=== PATIENT | female | born 1975 | race American Indian/Alaskan Native ===

== ENCOUNTER 2018-02-10 17:21 | Inpatient (IN) | payer MEDICAID ==
--- NOTE | 2018-02-10 18:41 | C.PDOC ---
History Of Present Illness 42 year old female presents to the ED for ETOH detox. Patient reports she drinks every day. Admits she is sad. No other medical complaints at this time. Denies suicidal ideations and homicidal ideations. pt reports recent dx of hype rthyroidism and htn, started on medications in early jan, reports compliance. Time Seen by Provider: 02/10/18 18:36 Chief Complaint (Nursing): Medical Clearance History Per: Patient History/Exam Limitations: no limitations Past Medical History Reviewed: Historical Data, Nursing Documentation, Vital Signs Vital Signs: Last Vital Signs Temp 98.9 F 02/10/18 17:43 Pulse 98 H 02/10/18 17:43 Resp 18 02/10/18 17:43 BP 138/90 02/10/18 17:43 Pulse Ox 96 02/10/18 17:43 - Medical History PMH: Hypothyroidism Surgical History: Appendectomy, Cholecystectomy Family History: States: Unknown Family Hx - Social History Hx Alcohol Use: Yes Hx Substance Use: No - Immunization History Hx Tetanus Toxoid Vaccination: No Hx Influenza Vaccination: No Hx Pneumococcal Vaccination: No Review Of Systems Constitutional: Negative for: Fever, Chills Cardiovascular: Positive for: Palpitations. Negative for: Chest Pain Respiratory: Negative for: Cough, Shortness of Breath Gastrointestinal: Negative for: Vomiting, Abdominal Pain Skin: Negative for: Rash Neurological: Negative for: Weakness, Numbness Psych: Positive for: Other (sad. ). Negative for: Suicidal ideation ((-) homicidal ideations. ) Physical Exam - Physical Exam Appears: Non-toxic, No Acute Distress Skin: Warm, Dry Head: Atraumatic, Normacephalic Eye(s): bilateral: Normal Inspection Oral Mucosa: Moist Lips: Other (chapped lips.) Neck: Normal ROM, Supple Chest: Symmetrical, No Deformity Cardiovascular: No Murmur, Other (tachycardia. ) Respiratory: Normal Breath Sounds, No Rales, No Rhonchi, No Wheezing Gastrointestinal/Abdominal: Normal Exam, Bowel Sounds, Soft, No Tenderness, No Guarding, No Rebound Extremity: Normal ROM (x4) Neurological/Psych: Oriented x3, Normal Speech, Normal Cognition ED Course And Treatment - Laboratory Results Result Diagrams: 02/10/18 19:30 02/10/18 19:30 Urine POC: Negative ECG: Interpreted By Me, Viewed By Me ECG Rhythm: Sinus Tachycardia Interpretation Of ECG: sinus tach.,possible lae, no st-t changes Rate From EC O2 Sat by Pulse Oximetry: 96 (RA) Pulse Ox Interpretation: Normal Medical Decision Making Medical Decision Making: pt here for detox with newly dx hyperthyrodisism. pt tachycardic on exam. tsh sent;result less than 0.02. discussed with Dr Yuen, will admit pt to medicine tele and will have crisis team follow as well. discussed with Dr Moise, med resident Disposition Discussed With .: Williams Yuen Jr. Doctor Will See Patient In The: Hospital - Disposition Disposition: HOSPITALIZED Disposition Time: 21:30 Condition: STABLE - Clinical Impression Clinical Impression: Hyperthyroidism without crisis, Alcohol abuse - PA / SEAMING INSPECTOR / Resident Statement MD/DO has reviewed & agrees with the documentation as recorded. - Scribe Statement The provider has reviewed the documentation as recorded by the Scribe (Teressa Gifford) All medical record entries made by the Scribe were at my direction and personally dictated by me. I have reviewed the chart and agree that the record accurately reflects my personal performance of the history, physical exam, medical decision making, and the department course for this patient. I have also personally directed, reviewed, and agree with the discharge instructions and disposition.
[2018-02-10] MEDS ORDERED: Sodium Chloride 0.9% 1,000 ML IV ONE (19:29)
[2018-02-10 19:40] LABS: BASO # 0.2 K/uL (0.0-0.2); BASO % 1.2 % (0.0-2.0); EOS # 0.4 K/uL (0.0-0.7); LYMPH # 7.2 K/uL (1.0-4.3); LYMPH % 59.4 % (20.0-40.0); MEAN CELL VOLUME 82.8 fL (81.0-99.0); MEAN CORPUSCULAR HEMOGLOBIN 26.9 pg (27.0-31.0); MEAN CORPUSCULAR HGB CONC 32.5 g/dL (33.0-37.0); MEAN PLATELET VOLUME 8.1 fL (7.2-11.7); MONO # 0.4 K/uL (0.0-0.8); MONO % 3.5 % (0.0-10.0); NEUT % 32.9 % (50.0-75.0); RBC 4.47 Mil/uL (3.80-5.20); RED CELL DISTRIBUTION WIDTH 15.6 % (11.5-14.5); WHITE BLOOD COUNT 12.2 K/uL (4.8-10.8)
[2018-02-10 19:41] LABS: SQUAMOUS EPITHIAL 1 /hpf (0-5); URINE BILIRUBIN NEGATIVE (NEGATIVE); URINE BLOOD 1+ (NEGATIVE); URINE CLARITY Clear (Clear); URINE COLOR Yellow (YELLOW); URINE GLUCOSE (UA) NORMAL (Normal); URINE LEUKOCYTE ESTERASE NEG Leu/uL (Negative); URINE PROTEIN NEGATIVE (NEGATIVE); URINE UROBILINOGEN NORMAL mg/dL (0.2-1.0)
[2018-02-10 19:42] LABS: HCG,QUALITATIVE URINE NEGATIVE (NEGATIVE)
[2018-02-10 19:52] LABS: ALB/GLOB RATIO 1.1 (1.0-2.1); ALBUMIN 4.6 g/dL (3.5-5.0); ALT/SGPT 21 U/L (9-52); AST/SGOT 61 U/L (14-36); BLOOD UREA NITROGEN 7 mg/dL (7-17); CALCIUM 9.2 mg/dl (8.6-10.4); GFR NON-AFRICAN AMERICAN > 60
[2018-02-10 19:54] LABS: BARBITURATES, UR NEGATIVE (NEGATIVE); PHENCYCLIDINE, UR NEGATIVE (NEGATIVE)
[2018-02-10 19:56] LABS: BENZODIAZEPINES, UR POSITIVE (NEGATIVE); OPIATES, UR NEGATIVE (NEGATIVE)
--- NOTE | 2018-02-10 22:29 | CP.PCM.HP ---
History of Present Illness - History of Present Illness History of Present Illness: cc: "I need detox" Ms. Walker is a 42 year old female PMH hypertension, fatty liver, anxiety/depression, EtOH abuse presenting to [facility] for alcohol detox and admitted to medicine s/p thyroid storm last week for hyperthyroidism. She was hospitalized at [facility] last week for 7 days last week for thyroid storm and did not make it to her follow up appointments before deciding she needed alcohol detox. She was started on methimazole 2.5mg po daily and started it 5 days ago. She is still feeling chest pain, palpitations, headache, dizziness, lightheadedness, weakness similar to her thyroid symptoms from before but not as pronounced. She reports a 75lb weight loss in the last year. She denies feeling hungry since she drinks as soon as she wakes up and consumes most of her calories that way. She is also feeling a gnawing RUQ pain. It's constant, does not radiate, 5/10, worsening with alcohol intake. Patient started drinking more heavily after her parents under her care in the last two years. She is agitated that she must be cleared medically prior to detox admission. PMD: none PMH: HTN, fatty liver, anxiety/depression, EtOH abuse, hyperthyroidism s/p thyroid storm Med: methimazole 2.5mg po daily, Amlodipine 5mg po daily, Lexapro 10mg po daily, Thiamine/Folate/MVI All: Latex FamHx: mother - CHF, Father - CAD PSH: Appy 2008, Cholecystectomy 2012 Social: 1ppd smoker (age 20), 2-5 fifths of liquor daily (age 13), smokes weed socially, denies other illicit drug use. Patient is currently homeless, quit her job at [employer] last week. Full Code Present on Admission - Present on Admission Any Indicators Present on Admission: No Review of Systems - Constitutional Constitutional: Chills, Excessive Sweating, Fatigue, Weight Loss, Weakness. absent: Fever, Increased Appetite, Night Sweats - EENT Eyes: Blurred Vision, Requires Corrective Lenses. absent: Diplopia, Sees Flashes Ears: Dizziness. absent: Tinnitus Nose/Mouth/Throat: absent: Dysphagia, Odynophagia, Sore Throat - Cardiovascular Cardiovascular: Chest Pain, Lightheadedness, Palpitations, Pedal Edema, Rapid Heart Rate. absent: Irregular Heart Rhythm, Leg Edema - Respiratory Respiratory: Dyspnea. absent: Cough, Hemoptysis, Dyspnea on Exertion, Chest Congestion - Gastrointestinal Gastrointestinal: Abdominal Pain, Constipation. absent: Bloating, Cramping, Diarrhea, Dysphagia, Nausea, Vomiting - Genitourinary Genitourinary: absent: Difficulty Urinating, Urinary Frequency, Urinary Hesitance, Urinary Urgency - Musculoskeletal Musculoskeletal: absent: Back Pain, Muscle Weakness, Numbness, Tingling - Integumentary Integumentary: Dry Skin, Swelling. absent: Skin Ulcer, Unusual Bruising, Wounds - Neurological Neurological: Frequent Falls, Weakness. absent: Numbness, Syncope, Tingling - Psychiatric Psychiatric: Anhedonia, Anxiety, Depression. absent: Confusion, Hallucinations, Homicidal Ideation, Suicidal Ideation, Visual Hallucinations, Tactile Hallucinations - Endocrine Endocrine: Excessive Sweating, Fatigue, Heat Intolorance, Palpitations - Hematologic/Lymphatic Hematologic: absent: Easy Bleeding, Easy Bruising Past Patient History - Past Social History Smoking Status: Heavy Smoker > 10 Cigarettes Daily Alcohol: > 2 Drinks/Day Drugs: Cannabis - ENDOCRINE/METABOLIC Hx Hypothyroidism: Yes - GASTROINTESTINAL Hx Fatty Liver Disease: Yes - PSYCHIATRIC Hx Substance Use: No - SURGICAL HISTORY Hx Appendectomy: Yes Hx Cholecystectomy: Yes Meds Allergies/Adverse Reactions: Allergies Allergy/AdvReac Type Severity Reaction Status Date / Time latex Allergy Verified 02/10/18 19:19 Physical Exam - Constitutional Appears: Non-toxic, No Acute Distress, Agitated - Head Exam Head Exam: ATRAUMATIC, NORMOCEPHALIC - Eye Exam Eye Exam: EOMI, Normal appearance, PERRL - ENT Exam ENT Exam: Mucous Membranes Dry - Neck Exam Neck exam: Positive for: Normal Inspection, Thyromegaly - Respiratory Exam Respiratory Exam: Clear to Auscultation Bilateral, NORMAL BREATHING PATTERN. absent: Rales, Rhonchi, Wheezes - Cardiovascular Exam Cardiovascular Exam: REGULAR RHYTHM, +S1, +S2. absent: Gallop, Rubs, Systolic Murmur - GI/Abdominal Exam GI & Abdominal Exam: Guarding, Normal Bowel Sounds, Soft, Tenderness. absent: Distended, Firm, Rebound Additional comments: RUQ TTP, negative Koroma's surgical scars present (paula, appy) - Extremities Exam Extremities exam: Positive for: normal capillary refill, pedal pulses present. Negative for: calf tenderness, pedal edema Additional comments: peripheral pulses palpable bilaterally (radial, PT) no LE edema noted, no erythema, no skin changes - Back Exam Back exam: absent: CVA tenderness (L), CVA tenderness (R) - Neurological Exam Neurological exam: Alert, CN II-XII Intact, Oriented x3, Reflexes Normal - Psychiatric Exam Psychiatric exam: Anxious, Depressed - Skin Skin Exam: Dry, Intact, Normal Color, Warm Additional comments: warm to touch Results - Vital Signs Recent Vital Signs: Last Vital Signs Temp 98.4 F 02/10/18 21:19 Pulse 118 H 02/10/18 21:19 Resp 16 02/10/18 21:19 BP 115/63 02/10/18 21:19 Pulse Ox 96 02/10/18 21:51 - Labs Result Diagrams: 02/10/18 19:30 02/10/18 19:30 Labs: Laboratory Results - last 24 hr 02/10/18 02/10/18 02/10/18 19:30 19:30 19:30 WBC 12.2 H RBC 4.47 Hgb 12.0 Hct 37.0 MCV 82.8 MCH 26.9 L MCHC 32.5 L RDW 15.6 H Plt Count 469 H MPV 8.1 Neut % (Auto) 32.9 L Lymph % (Auto) 59.4 H [place] % (Auto) 3.5 Eos % (Auto) 3.0 Baso % (Auto) 1.2 Neut # (Auto) 4.0 Lymph # (Auto) 7.2 H [place] # (Auto) 0.4 Eos # (Auto) 0.4 Baso # (Auto) 0.2 Sodium 144 Potassium 4.0 Chloride 102 Carbon Dioxide 26 Anion Gap 20 BUN 7 Creatinine 0.4 L Est GFR ( Amer) > 60 Est GFR (Non-Af Amer) > 60 Random Glucose 86 Calcium 9.2 Phosphorus 3.7 Magnesium 1.5 L Total Bilirubin 0.8 AST 61 H ALT 21 Alkaline Phosphatase 203 H Total Protein 8.8 H Albumin 4.6 Globulin 4.2 H Albumin/Globulin Ratio 1.1 TSH 3rd Generation < 0.02 L Urine Color Urine Clarity Urine pH Ur Specific [place] Urine Protein Urine Glucose (UA) Urine Ketones Urine Blood Urine Nitrate Urine Bilirubin Urine Urobilinogen Ur Leukocyte Esterase Urine WBC (Auto) Urine RBC (Auto) Ur Squamous Epith Cells Urine HCG, Qual Urine Opiates Screen Negative Urine Methadone Screen Negative Ur Barbiturates Screen Negative Ur Phencyclidine Scrn Negative Ur Amphetamines Screen Negative U Benzodiazepines Scrn Positive U Oth Cocaine Metabols Negative U Cannabinoids Screen Negative Alcohol, Quantitative 331 H 02/10/18 19:32 WBC RBC Hgb Hct MCV MCH MCHC RDW Plt Count MPV Neut % (Auto) Lymph % (Auto) [place] % (Auto) Eos % (Auto) Baso % (Auto) Neut # (Auto) Lymph # (Auto) [place] # (Auto) Eos # (Auto) Baso # (Auto) Sodium Potassium Chloride Carbon Dioxide Anion Gap BUN Creatinine Est GFR ( Amer) Est GFR (Non-Af Amer) Random Glucose Calcium Phosphorus Magnesium Total Bilirubin AST ALT Alkaline Phosphatase Total Protein Albumin Globulin Albumin/Globulin Ratio TSH 3rd Generation Urine Color Yellow Urine Clarity Clear Urine pH 6.0 Ur Specific [place] 1.009 Urine Protein Negative Urine Glucose (UA) Normal Urine Ketones Negative Urine Blood 1+ H Urine Nitrate Negative Urine Bilirubin Negative Urine Urobilinogen Normal Ur Leukocyte Esterase Neg Urine WBC (Auto) 1 Urine RBC (Auto) 1 Ur Squamous Epith Cells 1 Urine HCG, Qual Negative Urine Opiates Screen Urine Methadone Screen Ur Barbiturates Screen Ur Phencyclidine Scrn Ur Amphetamines Screen U Benzodiazepines Scrn U Oth Cocaine Metabols U Cannabinoids Screen Alcohol, Quantitative - EKG Data EKG Interpreted by: ER Physician EKG shows normal: Sinus rhythm Rate: Tachycardia Assessment & Plan - Assessment and Plan (Free Text) Assessment: 42yo F PMH HTN, fatty liver, EtOH abuse, anxiety/depression, s/p thyroid storm last week presenting for EtOH detox admitted for uncontrolled hyperthyroidism. Plan: Hyperthyroidism - Hx of Thyroid storm last week at [facility] - TSH <0.02 - increased Methimazole 5mg po tid - started Propranolol 40mg po bid - 1L NS given in ED - f/u free T4 Alcohol Use - Thiamine/Folic Acid/MVI - Librium 50mg po once given - Psych consulted: Dr. Grigsby - help appreciated - Detox regimen to be determined by psych per patient request Hypertension - home Amlodipine 5mg po daily held - started Propranolol as above - monitor vitals Anxiety/Depression - home Lexapro 10mg po daily Hx Fatty Liver - Patient is complaining of mild RUQ pain - AST/ALT 61/21 on admission, Alk Phos 203 - f/u hepatitis panel, Hep B Ab - trend AST/ALT with morning labs Tobacco Use - Nicotine 14mg patch TD daily PPx - DVT: SCDs - GI: not indicated - Diet: HHD d/w Dr. Yuen. All medical management per Dr. Wilfrid Moise PGY-1 - Date & Time Date: 02/10/18 Time: 21:30
[2018-02-10] MEDS ORDERED: Propranolol 60 mg ER Cap PO SCH (22:30)
[2018-02-10] MEDS: methIMAzole 5 MG TAB PO SCH (23:13)
[2018-02-11 07:55] LABS: BASO # 0.1 K/uL (0.0-0.2); BASO % 1.1 % (0.0-2.0); EOS # 0.4 K/uL (0.0-0.7); EOS % 5.4 % (0.0-4.0); HEMOGLOBIN 11.1 g/dL (11.0-16.0); LYMPH # 3.8 K/uL (1.0-4.3); MEAN CORPUSCULAR HEMOGLOBIN 27.2 pg (27.0-31.0); MEAN CORPUSCULAR HGB CONC 32.8 g/dL (33.0-37.0); MEAN PLATELET VOLUME 8.1 fL (7.2-11.7); MONO # 0.7 K/uL (0.0-0.8); MONO % 8.1 % (0.0-10.0); NEUT # 3.1 K/uL (1.8-7.0); NEUT % 38.4 % (50.0-75.0); NRBC % 0.1 % (0.0-2.0); RBC 4.09 Mil/uL (3.80-5.20); WHITE BLOOD COUNT 8.2 K/uL (4.8-10.8)
[2018-02-11 08:17] LABS: ALB/GLOB RATIO 1.1 (1.0-2.1); ALBUMIN 4.1 g/dL (3.5-5.0); ALT/SGPT 29 U/L (9-52); AST/SGOT 87 U/L (14-36); BLOOD UREA NITROGEN 8 mg/dL (7-17); CALCIUM 8.6 mg/dl (8.6-10.4); GFR NON-AFRICAN AMERICAN > 60
[2018-02-11 08:35] LABS: HEPATITIS B SURFACE AG Negative (NEGATIVE)
[2018-02-11 08:41] LABS: HEPATITIS A IGM NEGATIVE (NEGATIVE); HEPATITIS B CORE AB NEGATIVE (NEGATIVE)
[2018-02-11 08:52] LABS: HEPATITIS C ANTIBODY NEGATIVE (NEGATIVE)
[2018-02-11] MEDS: Multiple Vitamins Tab PO SCH (09:50)
[2018-02-11] MEDS: methIMAzole 5 MG TAB PO SCH ×3 (09:51→17:55)
--- NOTE | 2018-02-11 11:12 | CP.PCM.PN ---
Subjective - Date & Time of Evaluation Date of Evaluation: 02/11/18 Time of Evaluation: 11:11 - Subjective Subjective: PGY-1 Medicine progress note for Dr. Yuen Pt was seen and examined at bedside. Pt is sleeping prior to interview. She reports that she still has RUQ abdominal pain and palpitations. She denies fever, chills, chest pain, sob, n/v/d, hematochezia, melena, lightheadedness, dizziness, headache. Pt state sthat her last drink was yesterday morning (02/10). Pt is requesting to go to detox floor. Objective - Vital Signs/Intake and Output Vital Signs (last 24 hours): Temp Pulse Resp BP Pulse Ox 98.1 F 97 H 20 127/88 97 02/11/18 00:00 02/11/18 00:30 02/11/18 00:00 02/11/18 00:00 02/11/18 00:00 - Medications Medications: Current Medications Escitalopram Oxalate (Lexapro) 10 mg PO DAILY [facility] Last Admin: 02/11/18 09:51 Dose: 10 mg Folic Acid (Folic Acid) 1 mg PO DAILY [facility] Last Admin: 02/11/18 09:50 Dose: 1 mg Methimazole (Tapazole) 5 mg PO TID [facility] Last Admin: 02/11/18 09:51 Dose: 5 mg Multivitamins (Hexavitamin) 1 tab PO DAILY [facility] Last Admin: 02/11/18 09:50 Dose: 1 tab Nicotine (Nicoderm Cq) 1 patch TD DAILY [facility] Last Admin: 02/11/18 09:51 Dose: 1 patch Propranolol HCl (Inderal) 40 mg PO BID [facility] Last Admin: 02/11/18 09:51 Dose: 40 mg Thiamine HCl (Vitamin B1 Tab) 100 mg PO DAILY [facility] Last Admin: 02/11/18 09:50 Dose: 100 mg - Labs Labs: 02/11/18 07:48 02/11/18 07:48 - Constitutional Appears: Non-toxic, No Acute Distress - Head Exam Head Exam: ATRAUMATIC, NORMAL INSPECTION - Eye Exam Eye Exam: EOMI, Normal appearance - ENT Exam ENT Exam: Mucous Membranes Moist - Respiratory Exam Respiratory Exam: Clear to Ausculation Bilateral. absent: Rales, Rhonchi, Wheezes - Cardiovascular Exam Cardiovascular Exam: Tachycardia, +S1, +S2 - GI/Abdominal Exam GI & Abdominal Exam: Soft, Tenderness ((+) mild RUQ tenderness), Normal Bowel Sounds. absent: Distended, Firm, Guarding, Rigid - Extremities Exam Extremities Exam: Normal Capillary Refill. absent: Calf Tenderness, Pedal Edema, Tenderness - Back Exam Back Exam: NORMAL INSPECTION - Neurological Exam Neurological Exam: Alert, Awake - Psychiatric Exam Psychiatric exam: Normal Affect, Normal Mood - Skin Skin Exam: Dry, Normal Color, Warm Assessment and Plan - Assessment and Plan (Free Text) Assessment: 42yo F PMH HTN, fatty liver, EtOH abuse, anxiety/depression, s/p thyroid storm last week presenting for EtOH detox admitted for uncontrolled hyperthyroidism. Plan: Hyperthyroidism - Hx of Thyroid storm last week at [facility] - TSH <0.02 - continue Methimazole 5mg po tid - continue Propranolol 40mg po bid - pt is tolerating these medications well - free T4 is 1.53 Alcohol Use/intoxication - Etoh is 331 on admission - Thiamine/Folic Acid/MVI - Librium 50mg po once given - Psych consulted: Dr. Grigsby - help appreciated - Detox regimen as per psych per patient request Hypertension - home Amlodipine 5mg po daily held - started Propranolol as above - monitor vitals Anxiety/Depression - continue home Lexapro 10mg po daily Hx Fatty Liver - Patient is complaining of mild RUQ pain - AST/ALT 61/21 on admission, Alk Phos 203 - f/u hepatitis panel, Hep B Ab - AST/ALT/ALP is slightly uptrending 87/29/213 - lipase is WNL - UDS is positive for benzos - Hep panel is positive for HBVAb, HBV IgM and HBVAg is negative indicating immunization. Tobacco Use - Nicotine 14mg patch TD daily PPx - DVT: SCDs - GI: not indicated - Diet: HHD Dispo: pt is medically cleared as per Dr. Yuen. Pending transfer to psych detox floor. d/w Dr. Yuen. All medical management as per Dr. Wilfrid Brown PGY-1
--- NOTE | 2018-02-11 11:52 | PCM.PSYCH ---
Initial Psychiatric Evaluation - Initial Psychiatric Evaluation Type of Admission: Voluntary Legal Status: Capacity Chief Complaint (in patient's own words): "I need rehab" History of Present Illness and Precipitating Events: She is seen, chart reviewed, case discussed Consult was requested for her alcohol use. Patient is a 42-year-old single, unemployed -[place] female with no children who does not have a home but goes back and forth between friends houses. The patient has been drinking a lot since 2014 when her mother . The patient was seen at [facility] 7 months but she states that the hospitalization triggered her relapse for the past 3-4 days. The patient states that she has been drinking a lot of vodka, with her last drink yesterday morning. The patient had her first drink at the age of 13 and has never been to detox, rehab or attended AA meetings. The patient states that she has never been treated with medications for alcohol abuse. The patient states that she smokes marijuana 1-2 times per month but denies cocaine, heroin or pill use. The patient has smoked 0.5 packs per day for the past 22 years. The patient denies any family history of alcohol or drug use. The patient states that she lost her job last week due to her hospitalization causing her to be out of work for too long. The patient hopes to go to a 30-day rehab program after detox. The patient has a history of depression but denies any suicide ideations or previous suicide attempts. Past Psych History: Depression Past Medical History: Hyperthyroidism, HTN Family Psych History: denies Current Medications: Active Medications Generic Name Dose Route Start Last Admin Trade Name Destini PRN Reason Stop Dose Admin Escitalopram Oxalate 10 mg 02/11/18 10:00 02/11/18 09:51 Lexapro PO 10 mg DAILY PRISCILA Administration Folic Acid 1 mg 02/11/18 10:00 02/11/18 09:50 Folic Acid PO 1 mg DAILY PRISCILA Administration Methimazole 5 mg 02/10/18 22:19 02/11/18 09:51 Tapazole PO 5 mg TID PRISCILA Administration Multivitamins 1 tab 02/11/18 10:00 02/11/18 09:50 Hexavitamin PO 1 tab DAILY PRISCILA Administration Nicotine 1 patch 02/11/18 10:00 02/11/18 09:51 Nicoderm Cq TD 1 patch DAILY PRISCILA Administration Propranolol HCl 40 mg 02/10/18 22:30 02/11/18 09:51 Inderal PO 40 mg BID PRISCILA Administration Thiamine HCl 100 mg 02/11/18 10:00 02/11/18 09:50 Vitamin B1 Tab PO 100 mg DAILY PRISCILA Administration Past Psychiatric History - Past Psychiatric History Previous Treatment History: Intensive Outpatient Pertinent Medical Hx (Current Medical&Sleep Prob, Allergies): Allergies Allergy/AdvReac Type Severity Reaction Status Date / Time latex Allergy Verified 02/10/18 19:19 Escitalopram [Lexapro] 10 mg PO DAILY 02/10/18 Folic Acid 1 tab PO DAILY 02/10/18 Methimazole [Tapazole] 0.5 tab PO DAILY 02/10/18 Multivitamin [Multivitamins] 1 tab PO DAILY 02/10/18 Thiamine Mononitrate [Vitamin B-1] 0.5 tab PO DAILY 02/10/18 amLODIPine [Norvasc] 1 tab PO DAILY 02/10/18 Review of Systems - Psychiatric Psychiatric: Abnormal Sleep Pattern, Anhedonia, Anxiety, Change in Appetite, Depression, Difficulty Concentrating. absent: Hallucinations, Homicidal Ideation, Hopelessness, Paranoia, Suicidal Ideation Mental Status Examination - Personal Presentation Personal Presentation: Looks stated age - Affect Affect: Constricted - Motor Activity Motor Activity: Calm - Reliability in Providing Information Reliability in Providing Information: Good - Speech Speech: Organized - Mood Mood: Depressed, Anxious - Formal Thought Process Formal Thought Process: No Impairment - Cognitive Functions Orientation: Person, Place, Situation, Time Sensorium: Alert Attention/Concentration: Easily distracted Estimate of Intelligence: Average Judgement: Intact, as evidence by: Insight regarding need for hospitalization Memory: Recent intact, as evidence by: Ability to recall events of the day, Remote intact, as evidenced by: Abilit to recall sig. life events - Risk Risk: Withdrawal, Diminished functioning - Strength & Assets Inventory Strength & Assets Inventory: Cooperative - Limitations Limitations: Living alone, Other DSM 5 DX - DSM 5 DSM 5 Diagnosis: Alcohol withdrawal Alcohol use d/osevere Major Depressive Disorder, single, severe, w/o psychosis Hyperthyroidism HTN - Recommended/Plan of Treatment Treatment Recommendations and Plan of Treatment: Taper with librium lexapro for depression Gabapentin for augmentation if needed As needed medication All risks, benefits and alternatives of the meds discussed and the patient agreed and understood Attend groups and activities Supportive therapy and psychoeducation WI for abstinence CBT for relapse prevention Encourage MAT Refer to rehab or IOP, and self-help groups Teach healthy lifestyle methods, i.e. diet, exercise, meditation Smoking cessation with WI Nicotine patch if needed Continue home medication 33 min
[2018-02-11 13:12] LABS: LIPASE 67 U/L (23-300)
--- NOTE | 2018-02-12 07:28 | CARD ---
APPROVED REPORT Date of service: 02/10/2018 EKG Measurement Heart [id number] <Conclusion> Sinus tachycardia Possible Left atrial enlargement Borderline ECG
[2018-02-12 09:17] LABS: BASO # 0.1 K/uL (0.0-0.2); BASO % 0.9 % (0.0-2.0); EOS # 0.5 K/uL (0.0-0.7); EOS % 6.9 % (0.0-4.0); HEMOGLOBIN 11.8 g/dL (11.0-16.0); LYMPH # 2.6 K/uL (1.0-4.3); LYMPH % 37.9 % (20.0-40.0); MEAN CELL VOLUME 82.5 fL (81.0-99.0); MEAN CORPUSCULAR HEMOGLOBIN 27.7 pg (27.0-31.0); MEAN CORPUSCULAR HGB CONC 33.6 g/dL (33.0-37.0); MEAN PLATELET VOLUME 8.3 fL (7.2-11.7); MONO # 0.5 K/uL (0.0-0.8); NEUT # 3.2 K/uL (1.8-7.0); NEUT % 46.3 % (50.0-75.0); NRBC % 0.1 % (0.0-2.0); RBC 4.26 Mil/uL (3.80-5.20); RED CELL DISTRIBUTION WIDTH 14.7 % (11.5-14.5); WHITE BLOOD COUNT 6.8 K/uL (4.8-10.8)
[2018-02-12 09:34] LABS: ALBUMIN 4.1 g/dL (3.5-5.0); ALT/SGPT 38 U/L (9-52); AST/SGOT 98 U/L (14-36); BLOOD UREA NITROGEN 8 mg/dL (7-17); CALCIUM 9.3 mg/dl (8.6-10.4); GFR NON-AFRICAN AMERICAN > 60
[2018-02-12] MEDS: Multiple Vitamins Tab PO SCH (10:52)
[2018-02-12] MEDS: methIMAzole 5 MG TAB PO SCH ×3 (10:53→18:22)
[2018-02-12] MEDS ORDERED: Influenza Vaccine 60 MCG/0.5 ML SYR (3 yr & up) IM ONE (12:00)
[2018-02-12] MEDS ORDERED: Pneumococcal 23-Valent Vaccine IM ONE (12:00)
--- NOTE | 2018-02-12 18:54 | CP.PCM.PN ---
Subjective - Date & Time of Evaluation Date of Evaluation: 02/12/18 Time of Evaluation: 12:40 - Subjective Subjective: PGY-1 Medicine Progress Note for Dr. Yuen's service Patient seen and examined at bedside. Patient continues to complain of withdrawal symptoms such as palpitations, anxiety, and tremulousness. Patient denies fevers, chills, chest pain, sob, n/v, constipation or diarrhea, headaches, weakness, or dysuria. Objective - Vital Signs/Intake and Output Vital Signs (last 24 hours): Temp Pulse Resp BP Pulse Ox 98.8 F 93 H 18 122/91 H 98 02/12/18 15:50 02/12/18 16:41 02/12/18 15:50 02/12/18 15:50 02/12/18 15:50 Intake and Output: 02/12/18 02/12/18 06:59 18:59 Intake Total 120 Balance 120 - Medications Medications: Current Medications Chlordiazepoxide (Librium) 25 mg PO Q6 [facility]; Taper Stop: 02/16/18 11:59 Last Admin: 02/12/18 18:22 Dose: 25 mg Chlordiazepoxide (Librium) 25 mg PO Q4H PRN PRN Reason: Alcohol Withdrawal Last Admin: 02/12/18 15:13 Dose: 25 mg Clonidine HCl (Catapres) 0.1 mg PO Q4H PRN PRN Reason: Symptoms of alcohol withdrawl Escitalopram Oxalate (Lexapro) 10 mg PO DAILY [facility] Last Admin: 02/12/18 10:52 Dose: 10 mg Folic Acid (Folic Acid) 1 mg PO DAILY [facility] Last Admin: 02/12/18 10:52 Dose: 1 mg Methimazole (Tapazole) 5 mg PO TID [facility] Last Admin: 02/12/18 18:22 Dose: 5 mg Multivitamins (Hexavitamin) 1 tab PO DAILY [facility] Last Admin: 02/12/18 10:52 Dose: 1 tab Nicotine (Nicoderm Cq) 1 patch TD DAILY [facility] Last Admin: 02/12/18 10:53 Dose: 1 patch Propranolol HCl (Inderal) 40 mg PO BID [facility] Last Admin: 02/12/18 18:22 Dose: 40 mg Thiamine HCl (Vitamin B1 Tab) 100 mg PO DAILY [facility] Last Admin: 02/12/18 10:53 Dose: 100 mg - Labs Labs: 02/12/18 09:10 02/12/18 09:10 - Additional Findings Additional findings: - Constitutional Appears: Non-toxic, No Acute Distress - Head Exam Head Exam: ATRAUMATIC, NORMAL INSPECTION - Eye Exam Eye Exam: EOMI, Normal appearance - ENT Exam ENT Exam: Mucous Membranes Moist - Respiratory Exam Respiratory Exam: Clear to Ausculation Bilateral. absent: Rales, Rhonchi, Wheezes - Cardiovascular Exam Cardiovascular Exam: Regular rhythm, +S1, +S2 - GI/Abdominal Exam GI & Abdominal Exam: Soft, Tenderness ((+) mild RUQ tenderness), Normal Bowel S ounds. absent: Distended, Firm, Guarding, Rigid - Extremities Exam Extremities Exam: Normal Capillary Refill. absent: Calf Tenderness, Pedal Edema, Tenderness Tremors noted in bilateral hands when outstretched - Back Exam Back Exam: NORMAL INSPECTION - Neurological Exam Neurological Exam: Alert, Awake - Psychiatric Exam Psychiatric exam: Normal Affect, Normal Mood - Skin Skin Exam: Dry, Normal Color, Warm Assessment and Plan - Assessment and Plan (Free Text) Assessment: 42yo F PMH HTN, fatty liver, EtOH abuse, anxiety/depression, s/p thyroid storm last week presenting for EtOH detox admitted for uncontrolled hyperthyroidism. Plan: Hyperthyroidism Hx of Thyroid storm last week at [facility] TSH <0.02 Methimazole 5mg po tid Propranolol 40mg po bid Alcohol Use/intoxication Etoh is 331 on admission Thiamine/Folic Acid/MVI Librium 25mg po q6 [facility] Psych consulted: Dr. Grigsby - help appreciated Detox regimen as per psych per patient request Hypertension Propanolol 40mg po bid Anxiety/Depression Lexapro 10mg po daily Hx Fatty Liver Patient is complaining of mild RUQ pain AST/ALT 61/21 on admission, Alk Phos 203 Hep panel negative AST/ALT/ALP is slightly uptrending 87/29/213 lipase is WNL UDS is positive for benzos Tobacco Use Nicotine 14mg patch TD daily PPx DVT: SCDs GI: not indicated Diet: HHD Dispo: Pt is medically cleared as per Dr. Yuen.
[2018-02-13 07:01] LABS: BASO # 0.1 K/uL (0.0-0.2); BASO % 0.7 % (0.0-2.0); EOS # 0.5 K/uL (0.0-0.7); HEMOGLOBIN 11.5 g/dL (11.0-16.0); LYMPH # 3.8 K/uL (1.0-4.3); LYMPH % 39.9 % (20.0-40.0); MEAN CORPUSCULAR HEMOGLOBIN 27.3 pg (27.0-31.0); MEAN CORPUSCULAR HGB CONC 32.9 g/dL (33.0-37.0); MEAN PLATELET VOLUME 8.4 fL (7.2-11.7); MONO # 0.6 K/uL (0.0-0.8); MONO % 6.7 % (0.0-10.0); NEUT # 4.6 K/uL (1.8-7.0); NEUT % 47.7 % (50.0-75.0); NRBC % 0.1 % (0.0-2.0); RBC 4.23 Mil/uL (3.80-5.20); WHITE BLOOD COUNT 9.6 K/uL (4.8-10.8)
[2018-02-13 07:42] LABS: ALT/SGPT 41 U/L (9-52); AST/SGOT 82 U/L (14-36); BLOOD UREA NITROGEN 10 mg/dL (7-17); CALCIUM 9.1 mg/dl (8.6-10.4); GFR NON-AFRICAN AMERICAN > 60
[2018-02-13] MEDS: Multiple Vitamins Tab PO SCH (09:24)
[2018-02-13] MEDS: methIMAzole 5 MG TAB PO SCH ×3 (09:28→17:21)
--- NOTE | 2018-02-13 12:17 | CP.PCM.PN ---
Subjective - Date & Time of Evaluation Date of Evaluation: 02/13/18 Time of Evaluation: 10:00 - Subjective Subjective: PGY-1 Medicine Progress Note for Dr. Yuen's service Patient seen and examined at bedside. Pt is resting comfortably. She continues to complain of RUQ abdominal pain. Pt required Morphine 1 mg IVP last night. . Patient denies fevers, chills, chest pain, sob, n/v, constipation or diarrhea, headaches, weakness, or dysuria. Objective - Vital Signs/Intake and Output Vital Signs (last 24 hours): Temp Pulse Resp BP Pulse Ox 97.7 F 84 20 96/60 L 97 02/13/18 07:17 02/13/18 11:28 02/13/18 07:17 02/13/18 07:17 02/13/18 07:17 Intake and Output: 02/13/18 02/13/18 06:59 18:59 Intake Total 120 Balance 120 - Medications Medications: Current Medications Chlordiazepoxide (Librium) 25 mg PO Q8H [facility]; Taper Stop: 02/16/18 11:59 Last Admin: 02/13/18 05:49 Dose: 25 mg Chlordiazepoxide (Librium) 25 mg PO Q4H PRN PRN Reason: Alcohol Withdrawal Last Admin: 02/12/18 19:59 Dose: 25 mg Clonidine HCl (Catapres) 0.1 mg PO Q4H PRN PRN Reason: Symptoms of alcohol withdrawl Escitalopram Oxalate (Lexapro) 10 mg PO DAILY [facility] Last Admin: 02/13/18 09:28 Dose: 10 mg Folic Acid (Folic Acid) 1 mg PO DAILY [facility] Last Admin: 02/13/18 09:24 Dose: 1 mg Methimazole (Tapazole) 5 mg PO TID [facility] Last Admin: 02/13/18 09:28 Dose: 5 mg Multivitamins (Hexavitamin) 1 tab PO DAILY [facility] Last Admin: 02/13/18 09:24 Dose: 1 tab Nicotine (Nicoderm Cq) 1 patch TD DAILY [facility] Last Admin: 02/13/18 09:25 Dose: 1 patch Propranolol HCl (Inderal) 40 mg PO BID [facility] Last Admin: 02/13/18 09:27 Dose: 40 mg Thiamine HCl (Vitamin B1 Tab) 100 mg PO DAILY [facility] Last Admin: 02/13/18 09:24 Dose: 100 mg - Labs Labs: 02/13/18 06:43 02/13/18 06:43 - Additional Findings Additional findings: - Constitutional Appears: Non-toxic, No Acute Distress - Head Exam Head Exam: ATRAUMATIC, NORMAL INSPECTION - Eye Exam Eye Exam: EOMI, Normal appearance - ENT Exam ENT Exam: Mucous Membranes Moist - Respiratory Exam Respiratory Exam: Clear to Ausculation Bilateral. absent: Rales, Rhonchi, Wheezes - Cardiovascular Exam Cardiovascular Exam: Regular rhythm, +S1, +S2. absent: tachycardia - GI/Abdominal Exam GI & Abdominal Exam: Soft, Tenderness ((+) moderate RUQ tenderness), Normal Bowel Sounds. absent: Distended, Firm, Guarding, Rigid, Rebound - Extremities Exam Extremities Exam: Normal Capillary Refill. absent: Calf Tenderness, Pedal Edema, Tenderness Minimal tremors noted in bilateral hands when outstretched - Back Exam Back Exam: NORMAL INSPECTION - Neurological Exam Neurological Exam: Alert, Awake - Psychiatric Exam Psychiatric exam: Normal Affect, Normal Mood - Skin Skin Exam: Dry, Normal Color, Warm Assessment and Plan - Assessment and Plan (Free Text) Assessment: 42yo F PMH HTN, fatty liver, EtOH abuse, anxiety/depression, s/p thyroid storm last week presenting for EtOH detox admitted for uncontrolled hyperthyroidism. Plan: Hyperthyroidism Hx of Thyroid storm last week at [facility] TSH <0.02 Methimazole 5mg po tid Propranolol 40mg po bid Alcohol Use/intoxication Etoh is 331 on admission Thiamine/Folic Acid/MVI Librium 25mg po q6 [facility] Psych consulted: Dr. Grigsby - help appreciated Detox regimen as per psych per patient request Hypertension Propanolol 40mg po bid Anxiety/Depression Lexapro 10mg po daily Hx Fatty Liver Patient is complaining of moderate RUQ pain AST/ALT 61/21 on admission, Alk Phos 203 Hep panel negative AST/ALT/ALP is downtrending Lipase is WNL UDS is positive for benzos F/u abdominal US Tobacco Use Nicotine 14mg patch TD daily PPx DVT: SCDs GI: not indicated Diet: HHD Dispo: Pt is medically cleared as per Dr. Yuen. Pending discharge from psych detox.
[2018-02-14 07:25] LABS: BASO # 0.1 K/uL (0.0-0.2); BASO % 0.5 % (0.0-2.0); EOS # 0.4 K/uL (0.0-0.7); EOS % 3.8 % (0.0-4.0); HEMOGLOBIN 11.7 g/dL (11.0-16.0); LYMPH # 4.5 K/uL (1.0-4.3); LYMPH % 42.6 % (20.0-40.0); MEAN CELL VOLUME 83.4 fL (81.0-99.0); MEAN CORPUSCULAR HEMOGLOBIN 27.8 pg (27.0-31.0); MEAN CORPUSCULAR HGB CONC 33.3 g/dL (33.0-37.0); MEAN PLATELET VOLUME 8.5 fL (7.2-11.7); MONO # 0.6 K/uL (0.0-0.8); MONO % 5.4 % (0.0-10.0); NEUT # 5.1 K/uL (1.8-7.0); NEUT % 47.7 % (50.0-75.0); NRBC % 0.1 % (0.0-2.0); RBC 4.22 Mil/uL (3.80-5.20); RED CELL DISTRIBUTION WIDTH 14.7 % (11.5-14.5); WHITE BLOOD COUNT 10.6 K/uL (4.8-10.8)
[2018-02-14 07:43] LABS: ALB/GLOB RATIO 1.1 (1.0-2.1); ALBUMIN 4.2 g/dL (3.5-5.0); ALT/SGPT 35 U/L (9-52); AST/SGOT 62 U/L (14-36); BLOOD UREA NITROGEN 10 mg/dL (7-17); CALCIUM 9.3 mg/dl (8.6-10.4); GFR NON-AFRICAN AMERICAN > 60
[2018-02-14] MEDS ORDERED: Potassium Chloride 20 mEq ER Tab PO ONE (08:15)
[2018-02-14] MEDS: Multiple Vitamins Tab PO SCH (09:12)
[2018-02-14] MEDS: methIMAzole 5 MG TAB PO SCH ×3 (09:13→18:42)
--- NOTE | 2018-02-14 14:19 | US ---
Date of service: 02/13/2018 HISTORY: RUQ abdominal pain COMPARISON: None. TECHNIQUE: Sonographic evaluation of the abdomen. FINDINGS: LIVER: Measures 16.4 cm. Diffusely increased echogenicity of the liver parenchyma. Consistent with fatty infiltration. Smooth contour. No mass. No biliary dilatation. Normal hepatopetal portal venous flow. GALLBLADDER: Status post cholecystectomy. COMMON BILE DUCT: Measures 4 mm. No stones. No dilatation. PANCREAS: Unremarkable as visualized. No mass. No ductal dilatation. RIGHT KIDNEY: Measures 11.4cm. Normal echogenicity. No calculus, mass, or hydronephrosis. LEFT KIDNEY: Measures 10.4cm. Normal echogenicity. No calculus, mass, or hydronephrosis. SPLEEN: Normal in size and contour. No mass. AORTA: No aneurysmal dilatation. IVC: Unremarkable. OTHER FINDINGS: None. IMPRESSION: Fatty infiltration of the liver. Status post cholecystectomy. No additional abnormality. The preliminary findings for this examination were reported by [facility] at 7:50 p.m. on 02/13/2018. There is concurrence of this report with the preliminary findings.
[2018-02-14] MEDS: Magnesium Sulfate 1 gm in D5W 1 GM/100 ML BAG IVPB SCH ×2 (14:27→14:48)
--- NOTE | 2018-02-14 18:13 | CP.PCM.PN ---
Subjective - Date & Time of Evaluation Date of Evaluation: 02/14/18 Time of Evaluation: 12:00 - Subjective Subjective: PGY-1 Medicine Progress Note for Dr. Yuen's service Patient seen and examined at bedside. Pt is resting comfortably. Pt has no complaints at this time. Patient denies fevers, chills, chest pain, sob, abdominal pain, n/v, constipation or diarrhea, headaches, weakness, or dysuria. Objective - Vital Signs/Intake and Output Vital Signs (last 24 hours): Temp Pulse Resp BP Pulse Ox 97.7 F 84 18 111/77 100 02/14/18 16:00 02/14/18 16:00 02/14/18 16:00 02/14/18 16:00 02/14/18 16:00 - Medications Medications: Current Medications Chlordiazepoxide (Librium) 25 mg PO Q12H [facility]; Taper Stop: 02/16/18 11:59 Last Admin: 02/14/18 12:16 Dose: 25 mg Chlordiazepoxide (Librium) 25 mg PO Q4H PRN PRN Reason: Alcohol Withdrawal Last Admin: 02/12/18 19:59 Dose: 25 mg Clonidine HCl (Catapres) 0.1 mg PO Q4H PRN PRN Reason: Symptoms of alcohol withdrawl Escitalopram Oxalate (Lexapro) 10 mg PO DAILY [facility] Last Admin: 02/14/18 09:13 Dose: 10 mg Folic Acid (Folic Acid) 1 mg PO DAILY [facility] Last Admin: 02/14/18 09:12 Dose: 1 mg Methimazole (Tapazole) 5 mg PO TID [facility] Last Admin: 02/14/18 13:22 Dose: 5 mg Multivitamins (Hexavitamin) 1 tab PO DAILY [facility] Last Admin: 02/14/18 09:12 Dose: 1 tab Nicotine (Nicoderm Cq) 1 patch TD DAILY [facility] Last Admin: 02/14/18 09:13 Dose: 1 patch Propranolol HCl (Inderal) 40 mg PO BID [facility] Last Admin: 02/14/18 09:13 Dose: 40 mg Thiamine HCl (Vitamin B1 Tab) 100 mg PO DAILY [facility] Last Admin: 02/14/18 09:12 Dose: 100 mg - Labs Labs: 02/14/18 07:14 02/14/18 07:14 - Additional Findings Additional findings: - Constitutional Appears: Non-toxic, No Acute Distress - Head Exam Head Exam: ATRAUMATIC, NORMAL INSPECTION - Eye Exam Eye Exam: EOMI, Normal appearance - ENT Exam ENT Exam: Mucous Membranes Moist - Respiratory Exam Respiratory Exam: Clear to Ausculation Bilateral. absent: Rales, Rhonchi, Wheezes - Cardiovascular Exam Cardiovascular Exam: Regular rhythm, +S1, +S2. absent: tachycardia - GI/Abdominal Exam GI & Abdominal Exam: Soft, Nontender, Normal Bowel Sounds. absent: Tenderness, Distended, Firm, Guarding, Rigid, Rebound - Extremities Exam Extremities Exam: Normal Capillary Refill. absent: Calf Tenderness, Pedal Edema, Tenderness No tremors noted - Back Exam Back Exam: NORMAL INSPECTION - Neurological Exam Neurological Exam: Alert, Awake - Psychiatric Exam Psychiatric exam: Normal Affect, Normal Mood - Skin Skin Exam: Dry, Normal Color, Warm Assessment and Plan - Assessment and Plan (Free Text) Assessment: 42yo F PMH HTN, fatty liver, EtOH abuse, anxiety/depression, s/p thyroid storm last week presenting for EtOH detox admitted for uncontrolled hyperthyroidism. Plan: Hyperthyroidism Hx of Thyroid storm last week at [facility] TSH <0.02 Methimazole 5mg po tid Propranolol 40mg po bid Alcohol Use/intoxication Etoh is 331 on admission Thiamine/Folic Acid/MVI Librium 25mg po q6 [facility] Psych consulted: Dr. Grigsby - help appreciated Case discussed with Dr. Lee who states that pt is cleared from detox standpoint. Electrolyte abnormality LIkely due to history of decreased PO intake, alcoholism and diarrhea Hypokalemia repleted Hypomagnesemia repleted Anxiety/Depression Lexapro 10mg po daily Hx Fatty Liver Hep panel negative AST/ALT/ALP is downtrending Lipase is WNL UDS is positive for benzos Abdominal US shows fatty liver disease, s/p cholecystectomy Tobacco Use Nicotine 14mg patch TD daily Homelessness SW/CM consulted for discharge planning PPx DVT: SCDs GI: not indicated Diet: HHD Dispo: Pt is medically cleared as per Dr. Yuen, and cleared from detox point of view as per Dr. Lee. Pending discharge planning by
[2018-02-15 02:57] VITALS: RESP 20
[2018-02-15 09:16] VITALS: BP 103/70; PULSE 83; TEMP 98; O2SAT 95
[2018-02-15 09:19] LABS: ALB/GLOB RATIO 1.1 (1.0-2.1); ALBUMIN 4.1 g/dL (3.5-5.0); ALT/SGPT 29 U/L (9-52); AST/SGOT 51 U/L (14-36); BLOOD UREA NITROGEN 9 mg/dL (7-17); GFR NON-AFRICAN AMERICAN > 60
[2018-02-15] MEDS ORDERED: Magnesium Sulfate 1 gm in D5W 1 GM/100 ML BAG IVPB ONE (09:22)
[2018-02-15] MEDS: Multiple Vitamins Tab PO SCH (10:23)
[2018-02-15] MEDS: methIMAzole 5 MG TAB PO SCH (10:25)
--- NOTE | 2018-02-15 11:15 | CP.PCM.DIS ---
Provider - Provider Date of Admission: 02/14/18 16:55 Attending physician: Williams Yuen Jr, MD Time Spent in preparation of Discharge (in minutes): 35 Hospital Course - Lab Results Lab Results: Most Recent Lab Values WBC 10.6 K/uL (4.8-10.8) 02/14/18 07:14 RBC 4.22 Mil/uL (3.80-5.20) 02/14/18 07:14 Hgb 11.7 g/dL (11.0-16.0) 02/14/18 07:14 Hct 35.2 % (34.0-47.0) 02/14/18 07:14 MCV 83.4 fL (81.0-99.0) 02/14/18 07:14 MCH 27.8 pg (27.0-31.0) 02/14/18 07:14 MCHC 33.3 g/dL (33.0-37.0) 02/14/18 07:14 RDW 14.7 % (11.5-14.5) H 02/14/18 07:14 Plt Count 367 K/uL (130-400) 02/14/18 07:14 MPV 8.5 fL (7.2-11.7) 02/14/18 07:14 Neut % (Auto) 47.7 % (50.0-75.0) L 02/14/18 07:14 Lymph % (Auto) 42.6 % (20.0-40.0) H 02/14/18 07:14 [place] % (Auto) 5.4 % (0.0-10.0) 02/14/18 07:14 Eos % (Auto) 3.8 % (0.0-4.0) 02/14/18 07:14 Baso % (Auto) 0.5 % (0.0-2.0) 02/14/18 07:14 Neut # (Auto) 5.1 K/uL (1.8-7.0) 02/14/18 07:14 Lymph # (Auto) 4.5 K/uL (1.0-4.3) H 02/14/18 07:14 [place] # (Auto) 0.6 K/uL (0.0-0.8) 02/14/18 07:14 Eos # (Auto) 0.4 K/uL (0.0-0.7) 02/14/18 07:14 Baso # (Auto) 0.1 K/uL (0.0-0.2) 02/14/18 07:14 Sodium 136 mmol/L (132-148) 02/15/18 08:42 Potassium 4.1 mmol/L (3.6-5.2) 02/15/18 08:42 Chloride 102 mmol/L (98-107) 02/15/18 08:42 Carbon Dioxide 23 mmol/L (22-30) 02/15/18 08:42 Anion Gap 16 (10-20) 02/15/18 08:42 BUN 9 mg/dL (7-17) 02/15/18 08:42 Creatinine 0.4 mg/dL (0.7-1.2) L 02/15/18 08:42 Est GFR ( Amer) > 60 02/15/18 08:42 Est GFR (Non-Af Amer) > 60 02/15/18 08:42 POC Glucose (mg/dL) 85 mg/dL (65-110) 02/14/18 06:40 Random Glucose 77 mg/dL (65-105) 02/15/18 08:42 Calcium 9.0 mg/dl (8.6-10.4) 02/15/18 08:42 Phosphorus 4.2 mg/dL (2.5-4.5) 02/15/18 08:42 Magnesium 1.4 mg/dL (1.6-2.3) L 02/15/18 08:42 Total Bilirubin 1.2 mg/dL (0.2-1.3) 02/15/18 08:42 AST 51 U/L (14-36) H 02/15/18 08:42 ALT 29 U/L (9-52) 02/15/18 08:42 Alkaline Phosphatase 179 U/L (38-126) H 02/15/18 08:42 Total Protein 7.9 g/dL (6.3-8.3) 02/15/18 08:42 Albumin 4.1 g/dL (3.5-5.0) 02/15/18 08:42 Globulin 3.9 gm/dL (2.2-3.9) 02/15/18 08:42 Albumin/Globulin Ratio 1.1 (1.0-2.1) 02/15/18 08:42 Lipase 67 U/L (23-300) 02/11/18 07:48 Free T4 1.53 ng/dL (0.78-2.19) 02/11/18 07:48 TSH 3rd Generation < 0.02 mIU/L (0.46-4.68) L 02/10/18 19:30 Urine Color Yellow (YELLOW) 02/10/18 19:32 Urine Clarity Clear (Clear) 02/10/18 19:32 Urine pH 6.0 (5.0-8.0) 02/10/18 19:32 Ur Specific [place] 1.009 (1.003-1.030) 02/10/18 19:32 Urine Protein Negative mg/dL (NEGATIVE) 02/10/18 19:32 Urine Glucose (UA) Normal mg/dL (Normal) 02/10/18 19:32 Urine Ketones Negative mg/dL (NEGATIVE) 02/10/18 19:32 Urine Blood 1+ (NEGATIVE) H 02/10/18 19:32 Urine Nitrate Negative (NEGATIVE) 02/10/18 19:32 Urine Bilirubin Negative (NEGATIVE) 02/10/18 19:32 Urine Urobilinogen Normal mg/dL (0.2-1.0) 02/10/18 19:32 Ur Leukocyte Esterase Neg Zia/uL (Negative) 02/10/18 19:32 Urine WBC (Auto) 1 /hpf (0-5) 02/10/18 19:32 Urine RBC (Auto) 1 /hpf (0-3) 02/10/18 19:32 Ur Squamous Epith Cells 1 /hpf (0-5) 02/10/18 19:32 Urine HCG, Qual Negative (NEGATIVE) 02/10/18 19:32 Urine Opiates Screen Negative (NEGATIVE) 02/10/18 19:30 Urine Methadone Screen Negative (NEGATIVE) 02/10/18 19:30 Ur Barbiturates Screen Negative (NEGATIVE) 02/10/18 19:30 Ur Phencyclidine Scrn Negative (NEGATIVE) 02/10/18 19:30 Ur Amphetamines Screen Negative (NEGATIVE) 02/10/18 19:30 U Benzodiazepines Scrn Positive (NEGATIVE) 02/10/18 19:30 U Oth Cocaine Metabols Negative (NEGATIVE) 02/10/18 19:30 U Cannabinoids Screen Negative (NEGATIVE) 02/10/18 19:30 Alcohol, Quantitative 331 mg/dl (0-10) H 02/10/18 19:30 Hepatitis A IgM Ab Negative (NEGATIVE) 02/11/18 07:48 Hep Bs Antigen Negative (NEGATIVE) 02/11/18 07:48 Hep Bs Antibody Positive (NEGATIVE) 02/11/18 07:48 Hep B Core IgM Ab Negative (NEGATIVE) 02/11/18 07:48 Hepatitis C Antibody Negative (NEGATIVE) 02/11/18 07:48 Discharge Exam - Head Exam Head Exam: ATRAUMATIC, NORMAL INSPECTION Discharge Plan - Follow Up Plan Condition: STABLE Disposition: HOME/ ROUTINE
[2018-02-15] MEDS ORDERED: Influenza Vaccine 60 MCG/0.5 ML SYR (3 yr & up) IM ONE (12:47)
[2018-02-15] MEDS ORDERED: Pneumococcal 23-Valent Vaccine IM ONE (12:48)
== END 2018-02-15 14:19 | disposition home or self-care (01) | DRG 750 ==
LOC: C.ER 17:21 → INTOOBSV 21:47 → C.9E 21:47 → C.6T 22:45 → OBSVTOIN 02-14 16:55
PROVIDERS: ADMIT Internal Medicine; ATTEND Internal Medicine
PROC: GZ56ZZZ Individual Psychotherapy, Supportive (ICD-10-PCS; principal; 2018-02-14)
DX: F10.230 Alcohol dependence with withdrawal, uncomplicated (principal); F32.2 Major depressive disorder, single episode, severe without psychotic features; Y90.8 Blood alcohol level of 240 mg/100 ml or more; E03.9 Hypothyroidism, unspecified; F17.210 Nicotine dependence, cigarettes, uncomplicated; F41.9 Anxiety disorder, unspecified; I10 Essential (primary) hypertension; Z59.0 Homelessness; F19.10 Other psychoactive substance abuse, uncomplicated